=== PATIENT | female | born 1995 | race African-American/Black ===

== ENCOUNTER 2016-09-01 16:27 | Emergency (ER) | payer OTHER ==
[~2016-09-01] VITALS: Ht 170.2 cm; Wt 64.0 kg
[2016-09-01] MEDS ORDERED: ONDANSETRON HCL 4MG/2ML VIAL ONE (16:44)
[2016-09-01] MEDS ORDERED: ONDANSETRON HCL 4MG/2ML VIAL IV STA (16:53)
[2016-09-01] MEDS ORDERED: LORAZEPAM 2MG/ML CPJ IV STA (16:53)
[2016-09-01] MEDS ORDERED: SODIUM CHLORIDE 0.9% 1,000 ML IV ONE (16:53)
[2016-09-01] MEDS ORDERED: LORAZEPAM 2MG/ML CPJ ONE (17:00)
[2016-09-01 17:34] LABS: BASOPHILS % 0.9 % (0.0-2.0); EOSINOPHILS % 2.2 % (0.0-5.0); HEMATOCRIT. 34.8 % (36.0-48.0); HEMOGLOBIN. 11.5 g/dL (12.0-16.0); LYMPHOCYTES % 30.3 % (20.0-50.0); MEAN CORPUSCULAR HEMOGLOBIN 31.7 pg (28.0-32.0); MEAN CORPUSCULAR HGB CONC 33.1 g/dL (31.0-37.0); MEAN CORPUSCULAR VOLUME 95.7 fL (81.0-99.0); MEAN PLATELET VOLUME 8.2 fl (7.4-10.4); MONOCYTES % 9.2 % (2.0-8.0); NEUTROPHILS % 57.4 % (40.0-76.0); PLATELET 309 x1000/uL (130-400); RED BLOOD CELL COUNT 3.64 mill/uL (4.2-5.4); WHITE BLOOD COUNT 7.3 x1000/uL (4.5-11.0)
[2016-09-01 17:35] LABS: CHLORIDE 106 mEq/L (98-107); INDEX HEMOLYSI 1 (1-3); INDEX ICTERIC 1 (1-4); INDEX LIPEMIC 1 (1-3); INR 1.2; PROTHROMBIN TIME 12.4 sec
[2016-09-01 17:41] LABS: HCG SCREEN NEGATIVE
[2016-09-01 17:42] LABS: AMMONIA 30 uMol/L (<32)
[2016-09-01 17:43] LABS: CLARITY URINE CLOUDY (CLEAR); COLOR URINE YELLOW (YELLOW); GLUCOSE URINE NEGATIVE (NEGATIVE); KETONES URINE TRACE (NEGATIVE); LEUKOCYTE ESTERASE URINE 2+ (NEGATIVE); NITRITE URINE NEGATIVE (NEGATIVE); OCCULT BLOOD URINE 3+ (NEGATIVE); PROTEIN URINE 1+ (NEGATIVE); SPECIFIC GRAVITY URINE 1.022 (1.005-1.030)
[2016-09-01 17:43] LABS: ALANINE AMINOTRANSFERASE 17 IU/L (13-61); ALBUMIN 3.8 g/dL (3.4-5.0); ANION GAP 15; CALCIUM 8.6 mg/dL (8.5-10.1); CARBON DIOXIDE 23 mEq/L (21-32); ETHANOL BLOOD < 10 mg/dL; UREA NITROGEN BLOOD 8 mg/dL (7-21); eGFR > 60 mL/min (>60)
[2016-09-01 17:46] LABS: ACETAMINOPHEN < 2 ug/mL (10-30); CREATINE KINASE 118 IU/L (26-192)
[2016-09-01 17:52] LABS: THYROID STIMULATING HORMONE 0.71 uIU/mL (0.36-3.74)
[2016-09-01 18:01] LABS: *AMPHETAMINES SCREEN URINE NEGATIVE (NEGATIVE); *BARBITURATES SCREEN URINE NEGATIVE (NEGATIVE); *BENZODIAZEPINES SCREEN URINE NEGATIVE (NEGATIVE); *COCAINE SCREEN URINE NEGATIVE (NEGATIVE); ECSTASY MDMA SCREEN URINE NEGATIVE (NEGATIVE); METHADONE URINE SCREEN NEGATIVE (NEGATIVE); OPIATES URINE SCREEN NEGATIVE (NEGATIVE); PHENCYCLIDINE URINE SCREEN NEGATIVE (NEGATIVE)
[2016-09-01 18:03] LABS: CANNABINOID URINE SCREEN PRESUMTIVE POSITIVE (NEGATIVE)
[2016-09-01 18:04] LABS: BACTERIA URINE 1+; SQUAMOUS EPITHELIAL CELL URINE 2+ /lpf (RARE/1+)
[2016-09-01] MEDS ORDERED: METOCLOPRAMIDE HCL 10MG/2ML VIAL IV ONE (19:45)
[2016-09-02 06:24] VITALS: BP 114/69
== END 2016-09-02 07:25 | disposition home or self-care (01) ==
LOC: ER 16:28
DX: T40.7X1A Poisoning by cannabis (derivatives), accidental (unintentional), initial encounter (principal); R11.2 Nausea with vomiting, unspecified; F12.10 Cannabis abuse, uncomplicated; Z88.2 Allergy status to sulfonamides; Y92.89 Other specified places as the place of occurrence of the external cause
CPT/HCPCS: 36415; 80053; 80305; 80307; 80329; 81001; 82140; 82550; 84443; 84703; 85025; 85610; 93005; 96374; 96375; 99284; G0482; J2060; J2405; J2765; Z7610; J7030